=== PATIENT | female | born 1945 | race Two or more races ===

== ENCOUNTER 2022-12-20 19:54 | Emergency (ER) | payer OTHER ==
[~2022-12-20] VITALS: Ht 152.4 cm; Wt 86.2 kg
[2022-12-21] MEDS ORDERED: ALBUTEROL2.5 MG/3 M IH (02:41)
[2022-12-21] MEDS ORDERED: ZYNCOF 20-400120 ML PO (02:41)
[2022-12-21] MEDS ORDERED: PHENAGIL TABLE1 EACH PO (02:41)
[2022-12-21] MEDS ORDERED: BUDESONIDE0.5 MG/2 M IH (02:41)
== END 2022-12-21 04:05 ==
LOC: ER 19:54
DX: U07.1 COVID-19 (principal)